=== PATIENT | female | born 1960 ===

== ENCOUNTER 2018-02-13 10:20 | Day surgery (SDC) | payer SELFPAY ==
[2018-02-13 11:21] VITALS: BMI 25.7
[2018-02-13] MEDS ORDERED: Lidocaine Hydrochloride 1% 10 ML ONE (12:11)
--- NOTE | 2018-02-13 12:48 | CP.SDSHP ---
Same Day Surgery H & P - History Proposed Procedure: US Guided Thyroid FNA Pre-Op Diagnosis: thyroid nodules - Allergies Allergies: Allergies acetaminophen [From Percocet] Allergy (Verified 02/13/18 11:24) VOMITING RASH oxycodone [From Percocet] Allergy (Verified 02/13/18 11:24) VOMITING RASH - Physical Exam Vital Signs: Vital Signs 02/13/18 02/13/18 10:59 11:12 Temperature 98.2 F Pulse Rate 94 H 94 H Respiratory 18 Rate Blood Pressure 153/94 H O2 Sat by Pulse 100 Oximetry - Impression Impression: 57 yo female w/ thyroid nodules and suspcious isthmus nodule; plan us guided thyroid fna isthmus nodule - Date & Time Date: 02/13/18 Time: 12:30 Short Stay Discharge - Short Stay Discharge Admitting Diagnosis/Reason for Visit: E05.90 Disposition: HOME/ ROUTINE Referrals: Carla Diallo MD [Primary Care Provider] -
--- NOTE | 2018-02-13 12:49 | PCM.SURG1 ---
Surgeon's Initial Post Op Note - Surgeon's Notes Surgeon: Maikel Wilcox MD Fitter Hand: None Type of Anesthesia: Local Pre-Operative Diagnosis: thyroid nodules Operative Findings: cystic and solid inferior isthmus nodule Post-Operative Diagnosis: same Operation Performed: US guided thyroid fna x1 Specimen/Specimens Removed: fna isthmus nodule Estimated Blood Loss: EBL {In ML}: 0 Date of Surgery/Procedure: 02/13/18 Time of Surgery/Procedure: 12:49
[2018-02-13 13:07] VITALS: BP 141/87; PULSE 88; RESP 18; TEMP 98.2; O2SAT 100
--- NOTE | 2018-02-14 09:19 | US ---
PROCEDURE: ULTRASOUND-GUIDED THYROID BIOPSY CLINICAL HISTORY: 57-year-old female with suspicious isthmus nodule is referred to Interventional Radiology for ultrasound-guided thyroid FNA. COMPARISON: Thyroid ultrasound dated 12/15/2017 PROCEDURE: 1. Ultrasound-guided thyroid FNA x1. PRE-PROCEDURE FINDINGS: 1. Mixed cystic and solid inferior isthmus nodule. POST-PROCEDURE FINDINGS: 1. No evidence of post-procedural complication. INTERVENTIONAL RADIOLOGIST: Maikel Wilcox M.D. (the attending was present for the entire procedure.) ANESTHESIA: None. MEDICATION: Lidocaine 1% for local subcutaneous analgesia. COMPLICATIONS: None. PROCEDURE DESCRIPTION AND FINDINGS: The risks, benefits, alternatives and possible complications of the procedure were fully discussed; all questions were answered and informed consent was obtained. The patient was brought into the interventional suite and a pre-procedure 'time-out' was performed. The patient was placed on the ultrasound table in the supine position and the neck was passively extended. The anterior neck was prepped and draped in the usual sterile fashion. Maximum sterile barrier precautions were maintained throughout the entire procedure. Preliminary focused ultrasound images of the thyroid demonstrate the previously identified nodule referred for biopsy. Following subcutaneous infiltration of lidocaine 1% for local analgesia, under ultrasound guidance, utilizing separate needles, multiple fine needle aspirations were performed of the isthmus thyroid nodule, with real-time visualization of needle entry. The ultrasound images were permanently recorded and sent to the PACS. Adequate hemostasis was achieved utilizing manual compression. A sterile adhesive dressing was applied over the puncture site. The patient tolerated the procedure well without immediate post-procedure complications and was discharged home in stable condition. IMPRESSION: Successful ultrasound-guided fine needle aspiration of the isthmus thyroid nodule.
== END 2018-02-13 13:30 | disposition home or self-care (01) ==
LOC: H.OPSURG 10:20
PROVIDERS: ATTEND Family Medicine
DX: E04.2 Nontoxic multinodular goiter (principal); Z88.5 Allergy status to narcotic agent